=== PATIENT | female | born 1950 | race Two or more races ===

== ENCOUNTER 2016-10-16 19:32 | Emergency (ER) | payer OTHER ==
[2016-10-16 19:39] VITALS: O2SAT 92
--- NOTE | 2016-10-16 19:50 | CPEKG ---
Heart Rate: 94 RR Interval: 638 P-R Interval: 152 QRSD Interval: 124 QT Interval: 372 QTC Interval: 466 P [place]: 47 QRS [place]: -82 T Wave [place]: 38 EKG Severity - ABNORMAL ECG - EKG Impression: SINUS RHYTHM EKG Impression: PROBABLE LEFT ATRIAL ABNORMALITY EKG Impression: RIGHT BUNDLE BRANCH BLOCK Electronically Signed By: Camilo Leyva 16-Oct-2016 19:55:17
[2016-10-16] MEDS ORDERED: IPRATROPIUM/ALBUTEROL 3 ML DEYVIAL IH ONE (19:51)
[2016-10-16] MEDS ORDERED: predniSONE 20 MG TAB PO ONE (19:51)
--- NOTE | 2016-10-16 19:53 | EDPHY ---
H & P Stated Complaint: R chest pain today, cough, chills since Friday. Time Seen by Provider: 10/16/16 19:46 HPI/ROS: CHIEF COMPLAINT: Cough, shortness of breath HISTORY OF PRESENT ILLNESS: Patient is a 66-year-old female a history of COPD who comes to the emergency department complaining of a cough and shortness of breath and subjective fevers the last 3 days. She feels like she may have pneumonia. She states that she just started smoking again 3 months ago with her friends at work. She had quit for 4 years before that. She states that her cough is productive of green sputum. She denies nausea but did have 1 episode of posttussive vomiting. No headache. Mild chest pain with deep inspiration. REVIEW OF SYSTEMS: Constitutional: See HPI EENTM: denies: blurred vision, double vision, nose congestion Respiratory: See HPI Cardiac: denies: chest pain, irregular heart rate, lightheadedness, palpitations Gastrointestinal/Abdominal: denies: abdominal pain, diarrhea, nausea, vomiting, blood streaked stools Genitourinary: denies: dysuria, frequency, hematuria, pain Musculoskeletal: denies: joint pain, muscle pain Skin: denies: lesions, rash, jaundice, bruising Neurological: denies: headache, numbness, paresthesia, tingling, dizziness, weakness Hematologic/Lymphatic: denies: blood clots, easy bleeding, easy bruising Immunologic/allergic: denies: HIV/AIDS, transplant EXAM: GENERAL: Well-appearing, well-nourished and in no acute distress. HEAD: Atraumatic, normocephalic. EYES: Pupils equal round and reactive to light, extraocular movements intact, sclera anicteric, conjunctiva are normal. ENT: TMs normal, nares patent, oropharynx clear without exudates. Moist mucous membranes. NECK: Normal range of motion, supple without lymphadenopathy or JVD. LUNGS: Bilateral wheezes and rhonchi HEART: Regular rate and rhythm without murmurs, rubs or gallops. ABDOMEN: Soft, nontender, normoactive bowel sounds. No guarding, no rebound. No masses appreciated. BACK: No CVA tenderness, no spinal tenderness, step-offs or deformities EXTREMITIES: Normal range of motion, no pitting or edema. No clubbing or cyanosis. NEUROLOGICAL: Cranial nerves II through XII grossly intact. Normal speech, normal gait. 5/5 strength, normal movement in all extremities, normal sensation PSYCH: Normal mood, normal affect. SKIN: Warm, dry, normal turgor, no visible rashes or lesions. Source: Patient Exam Limitations: No limitations - Personal History Current Tetanus/Diphtheria Vaccine: Unsure Current Tetanus Diphtheria and Acellular Pertussis (TDAP): Unsure Tetanus Vaccine Date: within 10 years - Medical/Surgical History Hx Asthma: No Hx Chronic Respiratory Disease: No Hx Diabetes: No Hx Cardiac Disease: No Hx Renal Disease: No Hx Cirrhosis: No Hx Alcoholism: No Hx HIV/AIDS: No Hx Splenectomy or Spleen Trauma: No Other PMH: hysterectomy, cholecystectomy. - Family History Significant Family History: No pertinent family hx - Social History Smoking Status: Heavy smoker Alcohol Use: Sober Drug Use: None Constitutional: Initial Vital Signs Temperature (C) 37.8 C 10/16/16 19:35 Heart Rate 96 10/16/16 19:35 Respiratory Rate 18 10/16/16 19:35 Blood Pressure 156/82 H 10/16/16 19:35 O2 Sat (%) 92 10/16/16 19:35 O2 Delivery Mode Room Air Allergies/Adverse Reactions: No Known Allergies Allergy (Verified 10/16/16 19:37) Home Medications: Medication Instructions Recorded NO HOME MEDICATIONS 05/18/11 levOFLOXACIN [levAQUIN] 750 mg PO DAILY #10 tab 10/16/16 predniSONE 60 mg PO DAILY #15 tab 10/16/16 Medical Decision Making - Diagnostics EKG Interpretation: An EKG obtained and was read and documented in trace view. Please see trace view for full reading and report. Right bundle branch block, Imaging Results: Imaging Impressions Chest X-Ray 10/16/16 19:51 Impression: Query COPD/chronic bronchitis with no superimposed acute abnormality identified. X-ray: chest x-ray was obtained. I viewed the images myself on the PACS system. My interpretation of the images is: Bronchitis. The radiologist interpretation is pending. Imaging: I viewed and interpreted images myself ED Course/Re-evaluation: Patient has recently restarted smoking. She presents with wheezing and rhonchi and a low-grade fever. I will obtain chest x-ray and started on antibiotics. 8:20 p.m. patient is feeling 100% better after her DuoNeb. Her chest x-rays consistent with bronchitis not pneumonia. I will start her on steroids, albuterol and Levaquin. She is happy with this plan. She declines lab work or further testing. She is eager to go home. We discussed indications for returning. Wheezing is improved. Differential Diagnosis: Partial list of the Differential diagnosis considered include but were not limited to; bronchitis, pneumonia, and although unlikely based on the history and physical exam, I also considered PE, acute coronary disease, dissection. I discussed these differential diagnoses and the plan with the patient as well as the usual and expected course. The patient understands that the diagnosis is provisional and that in medicine we are not always correct and that further workup is often warranted. Usual and customary warnings were given. All of the patient's questions were answered. The patient was instructed to return to the emergency department should the symptoms at all worsen or return, otherwise to followup with the physician as we discussed. - Data Points Medications Given: Discontinued Medications Albuterol Sulfate (Proventil Inh Prepack) 1 mdi TAKEHOME EDNOW ONE Stop: 10/16/16 20:22 Last Admin: 10/16/16 20:29 Dose: 1 mdi Albuterol/Ipratropium (Duoneb) 3 ml IH EDNOW ONE Stop: 10/16/16 19:52 Last Admin: 10/16/16 20:01 Dose: 3 ml Levofloxacin (Levaquin) 750 mg PO EDNOW ONE PRN Reason: Protocol Stop: 10/16/16 19:52 Last Admin: 10/16/16 20:00 Dose: 750 mg Prednisone (Prednisone) 60 mg PO EDNOW ONE Stop: 10/16/16 19:52 Last Admin: 10/16/16 20:00 Dose: 60 mg Departure - Departure Disposition: Home, Routine, Self-Care Clinical Impression: Acute bronchitis Qualifiers: Bronchitis organism: unspecified organism Qualified Code(s): J20.9 - Acute bronchitis, unspecified Condition: Fair Instructions: Albuterol (By breathing), Acute Bronchitis (ED) Referrals: NONE *PRIMARY CARE P,. [Unknown] - As per Instructions Giovanni Price DO [Medical Doctor] - As per Instructions Prescriptions: levOFLOXACIN [levAQUIN] 750 mg PO DAILY #10 tab predniSONE 60 mg PO DAILY #15 tab
[2016-10-16] MEDS ORDERED: ALBUTEROL INH PREPACK MDI TAKEHOME ONE (20:21)
[2016-10-16 20:31] VITALS: PULSE 101; RESP 20
[2016-10-16 20:39] VITALS: BP 117/73; TEMP 99.9
== END 2016-10-16 20:38 | disposition home or self-care (01) ==
LOC: CED 19:32
DX: J44.0 Chronic obstructive pulmonary disease with (acute) lower respiratory infection (principal); J20.9 Acute bronchitis, unspecified; F17.200 Nicotine dependence, unspecified, uncomplicated
CPT/HCPCS: 71020-PO

== ENCOUNTER → 2016-11-18 | Outpatient (CLI) | payer OTHER | LOC: CIMAGING 08:00 | PROVIDERS: ATTEND Physician Assistant | DX: B18.2 Chronic viral hepatitis C (principal); Z90.49 Acquired absence of other specified parts of digestive tract | CPT/HCPCS: 76705-PO ==

== ENCOUNTER 2017-10-12 10:10 | Emergency (ER) | payer OTHER ==
[2017-10-12 10:21] VITALS: BP 151/87
--- NOTE | 2017-10-12 10:41 | EDPHY ---
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 No numbness or tingling in extremities, no loss of bowel or bladder control. Patient states she has taken ibuprofen 200 mg with a little bit of relief. Specifically no dysuria, no fever no chills shortness of breath, no cough, no flu-like symptoms Review of systems As per HPI General no fever no chills no weakness HEENT no eye pain no eye discharge. No eye redness, no sore throat Respiratory no cough, no shortness of breath Cardiac no chest pain, no peripheral edema GI no abdominal pain, no diarrhea, no constipation, no nausea, no vomiting no flank pain, no hematuria, no dysuria Musculoskeletal positive myalgias, no joint pain Heme no easy bruising, no easy bleeding Endo no polyuria, no polydipsia Skin no rashes, no pruritus Neuro no syncope, no dizziness, no headaches Psych is no suicidal ideation, no homicidal ideation Past Medical/Surgical History: Right shoulder dislocation Back pain Social History: Denies alcohol or drug use Smoking Status: Heavy smoker Physical Exam: 67-year-old female alert and oriented no acute distress nontoxic appearance, afebrile Gait intact A truck normocephalic Neck is supple, no JVD Lungs clear to auscultation bilaterally Heart regular rate and rhythm without murmur rub or gallop Back positive right parathoracic para upper lumbar tenderness palpation however no swelling no ecchymosis, no midline tenderness no step-offs Extremities no cyanosis clubbing or edema Neuro DTRs intact, able to walk on heels, able to walk on tiptoes, negative straight leg raise Constitutional: Initial Vital Signs Temperature (C) 36.9 C 10/12/17 10:17 Heart Rate 64 10/12/17 10:17 Respiratory Rate 18 10/12/17 10:17 Blood Pressure 151/87 H 10/12/17 10:17 O2 Sat (%) 92 10/12/17 10:17 O2 Delivery Mode Room Air Allergies/Adverse Reactions: No Known Allergies Allergy (Verified 10/12/17 10:16) Home Medications: Medication Instructions Recorded NO HOME MEDICATIONS 05/18/11 Cyclobenzaprine [Flexeril 10 MG 10 mg PO BID PRN #6 tab 10/12/17 (*)] Lidocaine [Lidoderm] 1 each TP DAILY 7 Days #7 10/12/17 adh..patch Medical Decision Making ED Course/Re-evaluation: Patient seen and evaluated for right mid upper back pain. 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 [Primary Care Provider] - As per Instructions Prescriptions: Cyclobenzaprine [Flexeril 10 MG (*)] 10 mg PO BID PRN #6 tab PRN Reason: Spasms Lidocaine [Lidoderm] 1 each TP DAILY 7 Days #7 adh..patch
== END 2017-10-12 10:53 | disposition home or self-care (01) ==
LOC: CED 10:10
DX: S29.012A Strain of muscle and tendon of back wall of thorax, initial encounter (principal); F17.200 Nicotine dependence, unspecified, uncomplicated; X58.XXXA Exposure to other specified factors, initial encounter; Y99.8 Other external cause status; Y93.E5 Activity, floor mopping and cleaning

== ENCOUNTER → 2018-04-06 | Outpatient (CLI) | payer OTHER | LOC: BRMIMAGING 14:08 | PROVIDERS: ATTEND Physician Assistant Medical | DX: M25.762 Osteophyte, left knee (principal) | CPT/HCPCS: 73564-PO ==

== ENCOUNTER 2018-11-28 07:50 | Emergency (ER) | payer OTHER | END 2018-11-28 08:40 | disposition home or self-care (01) | LOC: CED 07:50 ==